=== PATIENT | male | born 1935 | race Caucasian/White ===

== ENCOUNTER → 2017-03-26 | Day surgery (SDC) | payer OTHER, MEDICARE ==
[~2017-03-26] VITALS: Ht 170.2 cm; Wt 90.7 kg
[2017-03-26 06:42] LABS: ABSOLUTE BASOPHIL COUNT 0 /CUMM (0.0-0.2); ABSOLUTE EOSINOPHIL COUNT 0 /CUMM (0.0-0.7); ABSOLUTE MONOCYTE COUNT 0.3 /CUMM (0.10-0.60); BASOPHIL % 0.6 % (0.0-2.0); EOSINOPHIL % 0.6 % (0-5); GRANULOCYTE % 74.5 % (42.2-75.2); HEMATOCRIT 38.1 % (42-52); MEAN CORPUSCULAR HGB CONC 33.8 G/DL (33.0-37.0); MEAN CORPUSCULAR VOLUME 121.3 FL (80.0-94.0); MEAN PLATELET VOLUME 8.1 FL (7.4-10.4); PLATELET COUNT 356 /CUMM (130-400); RBC DISTRIBUTION WIDTH 16.9 % (11.5-14.5); RED BLOOD CELL CT 3.14 /CUMM (4.70-6.10); WHITE BLOOD CELL COUNT 5.3 /CUMM (4.8-10.8)
--- NOTE | 2017-03-26 11:39 | Cons- Cardiology ---
General Information and HPI Consulting Request Date of Consult: 03/26/17 Requested By: Neto Ortega MD History of Present Illness: The patient is a pleasant 40-year-old male who is followed in the office by Dr. Ibanez from my group. 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 At his most recent visit in November 2016 he was noted to be complete heart block at a rate of 39 without symptoms. His beta-irish was discontinued. He is now seen in the PACU status post right lower extremity attempted thrombectomy, and he is again noted to be incomplete heart block. Ventricular rate is in the 30s and 40s. He remains asymptomatic from the bradycardia. He has no history of syncope. No palpitations. No orthopnea. No diaphoresis. No nausea or vomiting. Allergies/Medications Allergies: Coded Allergies: No Known Allergies (03/26/17) NO KNOWN ALLERGIES PER KENDALL TELLO IN OR ON 03/26/17 ([facility]) Review of Systems Review of Systems: No rash. No tremor. No melena. Past History Family History Family History Reviewed? Family history was reviewed with the patient and is negative for any factors contributing to the current presentation. Exam & Diagnostic Data Physical Exam: Gen: The patient is in no acute distress HEENT: Normal nose, ears, and oropharynx. Pupils equal bilaterally. Conjunctiva normal. Neck: Supple with no JVD, no masses, and no thyromegaly Lungs: Clear to auscultation with normal respiratory effort Heart: RRR, S1, S2, no murmurs. No peripheral edema, 2+ pulses in the lower extremities bilaterally Abdomen: Soft, nontender, no masses. No hepatomegaly. No splenomegaly Extremities: No clubbing or cyanosis. Normal muscle strength in the upper and lower extremities. Skin: Normal skin turgor with no skin ulcers or lesions noted. Neuro: Cranial nerves intact. Sensation intact Psych: Alert and oriented 3 with appropriate affect Diagnostic Data EKG Results EKG tracing is event reviewed, and reveals sinus rhythm with second-degree AV block type 1 Assessment/Plan Assessment/Plan The patient is an 81-year-old male with history of sinus bradycardia and prior history of stable third-degree AV block noted after a surgical procedure to be in second-degree AV block Mobitz 1 with ventricular rate of 35. after discussion of the case with my electrophysiology colleague, the patient was ambulated, and his heart rate was observed to increase to 69 beats per minute. He remains completely asymptomatic from the bradycardia. Plan: * Discharge home * Continue same meds * Follow up in the office within 1 week Consult Acknowledgment - Thank you for your consult request.
--- NOTE | 2017-03-26 18:35 | Operative Report ---
Operative/Inv Procedure Report Surgery Date: 03/26/17 Name of Procedure: Ultrasound guidance for vascular access of popliteal vein, bilateral venography, supervision and interpretation of bilateral venography, IVC venography, supervision and interpretation of IVC venography second-order cannulation of the venous system Pre-Operative Diagnosis: right fem-pop DVT Post-Operative Diagnosis: right fem-pop DVT Estimated Blood Loss: scant Surgeon/Wind Tunnel Engineer: Neto Ortega MD Anesthesia: local monitored anesthesi Complications: None Condition: Stable to PACU Operative Indication: This is an 81-year-old male with a history of right leg swelling and discomfort. He was diagnosed with a femoropopliteal DVT approximately 2+ weeks ago. He is here for discussion of percutaneous mechanical thrombectomy. He was advised of the risks of procedure including; bleeding, infection and pulmonary embolism. He decided to proceed with intervention. Operative/Procedure Note Note: Patient was brought to the operating room and laid prone on the operating room table. A timeout was held in accordance with [facility] policy. Attempts were made to access the right popliteal vein. This was done under ultrasound guidance. However, due to significant stenosis within the vein the vessel on the right could not be accessed. The decision was then made to access the left and image the right side. Using ultrasound guidance the left popliteal vein was then accessed. This was done with a 21-gauge micropuncture needle. A 0.018 inch wire was then advanced in a coaxial dilator system was placed. This was exchanged for a 5 Swiss sheath. Using a Glidewire and glide catheter a right leg and left leg venogram was performed. The left leg venogram was performed first. This was done using a catheter and wire which was advanced into the inferior vena cava. Left leg ascending venography demonstrates a patent popliteal, superficial femoral, deep femoral and common femoral vein. The iliac system on the left is widely patent. There may be some slight compression of the left iliac vein. A separate IVC venogram was performed with the catheter. This also demonstrates a widely patent inferior vena cava. A right leg venogram was performed by using an Omni Flush catheter to access the right iliac system from the left. The catheter was advanced past the iliac bifurcation into the femoral system. A second order cannulation was completed. This demonstrates a patent common femoral and profunda femoris vein. The superficial femoral vein is occluded. The left iliac system is patent. The left common iliac and external iliac vein are patent. Due to the apparent chronic nature of this clot - an attempt was made to traverse it. A 6 Swiss sheath was placed over the femoral bifurcation to the right common femoral vein. With the use of a catheter -attempts to traverse the occluded vein were unsuccessful. Therefore the catheter, sheath and wire systems were removed and direct compression as well as BioGlue and a stitch were placed in the left popliteal puncture site. The stitch was removed and a dressing was finally placed. The right leg was then wrapped in a compression bandage and the patient be continued on anticoagulation. Findings: As above-Also please note -the patient was noted by anesthesia to be in complete heart block during the case. A cardiology consult was placed and the patient was evaluated in the PACU. Please see the consult note. CC: Drea JOSE,Aquiles
--- NOTE | 2017-03-27 17:14 | RADIOLOGY REPORT ---
EXAMINATION: Intraoperative fluoroscopy CLINICAL INFORMATION: Bilateral venogram COMPARISON: None. TECHNIQUE: Intraoperative fluoroscopy was provided for use by Dr. Ortega. A total of 5 images were saved to PACS. TOTAL FLUOROSCOPIC TIME: 0.41 minutes FINDINGS\E\IMPRESSION: Intraoperative fluoroscopy provided for use by Dr. Ortega. Please see operative note for detailed findings.
== END ==
LOC: STS 03:21
PROVIDERS: Surgery Vascular Surgery
DX: I82.431 Acute embolism and thrombosis of right popliteal vein (principal); I87.2 Venous insufficiency (chronic) (peripheral); D45 Polycythemia vera; Z79.01 Long term (current) use of anticoagulants; I10 Essential (primary) hypertension; N40.0 Benign prostatic hyperplasia without lower urinary tract symptoms
CPT/HCPCS: 36415; 73552; 93005; 93010; C1725; J0131; J1644; J2250; J2997; Q9967